=== PATIENT | male | born 1970 | race African-American/Black ===

== ENCOUNTER 2021-03-24 05:55 | Emergency (ER) | payer OTHER, SELFPAY ==
[2021-03-24] VITALS (17 sets, daily range): BP systolic 110–171; BP diastolic 55–102; PULSE 93–109; RESP 15–30; TEMP 35.5; O2SAT 91–100; BMI 35.2
--- NOTE | 2021-03-24 05:59 | DI.RAD.S_ITS ---
PROCEDURE: XR CHEST 1V INDICATIONS: Shortness of breath TECHNIQUE: One view of the chest was acquired. COMPARISON: None. FINDINGS: Surgical changes and devices: None. Lungs and pleura: Lungs are clear. No pleural effusions or pneumothorax. Mediastinum: Mediastinal contours appear normal. Heart size is normal. Bones and chest wall: No suspicious bony lesions. Overlying soft tissues appear unremarkable. IMPRESSION: No acute cardiopulmonary abnormality. Dictated by: Clyde Schofield M.D. on 03/24/2021 at 8:29 Approved by: Clyde Schofield M.D. on 03/24/2021 at 8:29
--- NOTE | 2021-03-24 06:00 | ED_ITS ---
HPI - General Adult <Cornelio Hastings DO - Last Filed: 03/25/21 18:19> General Chief complaint: Chest Pain Stated complaint: sob x6 hours Time Seen by Provider: 03/24/21 05:57 Source: patient Mode of arrival: Ambulatory Limitations: no limitations History of Present Illness HPI narrative: Patient is a 50-year-old male. Initially arrived with a complaint of shortness of breath for the past 6 hours. He states that it did wake him from sleep. Upon further questioning he states he is also having some chest discomfort. Has right-sided shoulder discomfort. Has abdominal discomfort and also pain in his right calf muscle. The discomfort in his abdomen and shoulder and leg started after the shortness of breath. Had some nausea but no vomiting. No change in bowel habits. No urinary symptoms. Related Data Allergies Allergy/AdvReac Type Severity Reaction Status Date / Time No Known Drug Allergies Allergy Verified 03/24/21 07:13 Review of Systems <Cornelio Hastings DO - Last Filed: 03/25/21 18:19> Constitutional Constitutional: Denies fever(s) and Denies headache(s) Eyes Eyes: Reports system reviewed and no additional complaints, except as documented ENT Ears, Nose, Mouth, and Throat: Reports system reviewed and no additional complaints, except as documented and Denies headache(s) Cardiovascular Cardiovascular: Reports as per HPI and Reports system reviewed and no additional complaints, except as documented Respiratory Respiratory: Reports as per HPI and Reports system reviewed and no additional complaints, except as documented Gastrointestinal Gastrointestinal: Reports as per HPI, Reports system reviewed and no additional complaints, except as documented and Reports abdominal pain Genitourinary Genitourinary: Reports system reviewed and no additional complaints, except as documented Musculoskeletal Musculoskeletal: Reports system reviewed and no additional complaints, except as documented and Reports as per HPI Integumentary/Breasts Skin/Breast: Reports system reviewed and no additional complaints, except as documented Neurologic Neurologic: Reports system reviewed and no additional complaints, except as documented and Denies headache(s) Hematologic/Lymphatic On Anticoagulants: No Allergic/Immunologic Allergic/Immunologic: Reports system reviewed and no additional complaints, except as documented Patient History <Cornelio Hastings DO - Last Filed: 03/25/21 18:19> Medical History Patient denies medical problems Social History Smoking Status: Never smoker Exam <Cornelio Hastings DO - Last Filed: 03/25/21 18:19> Initial Vital Signs Initial Vital Signs: Vital Signs Temperature 96 F L 03/24/21 06:00 Pulse Rate 109 H 03/24/21 06:00 Respiratory Rate 21 03/24/21 06:00 Blood Pressure 114/86 03/24/21 06:00 Pulse Oximetry 99 03/24/21 06:00 Const General: cooperative and well groomed Limitations: mental status not altered [facility] Head: normal to inspection and normocephalic Eyes General: appearance normal, both eyes and all related structures Chest Chest: normal inspection of the chest and No tenderness Resp Effort & Inspection: tachypneic Auscultation: clear to auscultation bilaterally Cardio Rate: tachycardic Rhythm: regular rhythm GI Inspection: non-distended Palpation: soft and tender (Right lower quadrant) Back/Spine/Pelvis Back: normal to inspection Skin General: no rashes or lesions noted Neuro General: patient alert, patient awake, patient oriented x3 and moves all extremities Extrem General: capillary refill normal Other: Reproducible discomfort on the anterior portion of the right shoulder. Also discomfort in his right calf muscle Psych Appearance: grossly normal and well kempt <Althea Daniel DO - Last Filed: 03/24/21 18:12> Initial Vital Signs Initial Vital Signs: Vital Signs Temperature 96 F L 03/24/21 06:00 Pulse Rate 109 H 03/24/21 06:00 Respiratory Rate 03/24/21 06:00 Blood Pressure 114/86 03/24/21 06:00 Pulse Oximetry 99 03/24/21 06:00 Course <Cornelio Hastings DO - Last Filed: 03/25/21 18:19> Orders Ordered: Discontinued Medications Aspirin (Aspirin 81 Mg Chew Tab) 324 mg PO NOW ONE Stop: 03/24/21 06:32 Last Admin: 03/24/21 06:40 Dose: 324 mg Documented by: MIKALA Heparin Sodium (Porcine) (Heparin 5,000 Unit/Ml Vial) 7,500 unit IV NOW ONE Stop: 03/24/21 07:06 Last Admin: 03/24/21 07:19 Dose: 7,500 unit Documented by: AICHA Sodium Chloride (Normal Saline 0.9%) 1,000 mls @ 500 mls/hr IV BOLUS ONE Stop: 03/24/21 08:30 Last Infusion: 03/24/21 10:19 Dose: 0 mls/hr Documented by: Admin: 03/24/21 06:40 Dose: 500 mls/hr Documented by: MIKALA Heparin Sodium/Dextrose (Heparin Drip) 25,000 unit in 500 mls @ 24 mls/hr IV CONT MARIAN; Protocol Last Titration: 03/24/21 13:01 Dose: 0 units/hr, 0 mls/hr Documented by: Admin: 03/24/21 07:14 Dose: 1,200 units/hr, 24 mls/hr Documented by: AICHA Vital Signs Vital signs: Vital Signs - 8 hr 03/24/21 10:30 03/24/21 11:00 03/24/21 11:30 Pulse Rate 97 H 95 H 94 H Respiratory Rate 28 H 25 H 30 H Blood Pressure 141/91 H 142/97 H 166/95 H Pulse Oximetry 96 98 100 03/24/21 12:00 03/24/21 12:30 Pulse Rate 97 H 97 H Respiratory Rate 28 H 29 H Blood Pressure 153/99 H 171/102 H Pulse Oximetry 96 98 <Althea Daniel, - Last Filed: 03/24/21 18:12> Orders Ordered: Discontinued Medications Aspirin (Aspirin 81 Mg Chew Tab) 324 mg PO NOW ONE Stop: 03/24/21 06:32 Last Admin: 03/24/21 06:40 Dose: 324 mg Documented by: MIKALA Heparin Sodium (Porcine) (Heparin 5,000 Unit/Ml Vial) 7,500 unit IV NOW ONE Stop: 03/24/21 07:06 Last Admin: 03/24/21 07:19 Dose: 7,500 unit Documented by: AICHA Sodium Chloride (Normal Saline 0.9%) 1,000 mls @ 500 mls/hr IV BOLUS ONE Stop: 03/24/21 08:30 Last Infusion: 03/24/21 10:19 Dose: 0 mls/hr Documented by: Admin: 03/24/21 06:40 Dose: 500 mls/hr Documented by: MIKALA Heparin Sodium/Dextrose (Heparin Drip) 25,000 unit in 500 mls @ 24 mls/hr IV CONT MARIAN; Protocol Last Titration: 03/24/21 13:01 Dose: 0 units/hr, 0 mls/hr Documented by: Admin: 03/24/21 07:14 Dose: 1,200 units/hr, 24 mls/hr Documented by: AICHA Consultations Consultation #1: Dr. Fletcher at [facility]. Recommends continuing with current plan. If decompensates to callback. Time: 10:50 Consultation #2: Dr. Mckinnon, [facility] hospitalist at [facility] kindly accepts for transfer to [facility]. Time: 11:38 Vital Signs Vital signs: Vital Signs - 8 hr 03/24/21 10:30 03/24/21 11:00 03/24/21 11:30 Pulse Rate 97 H 95 H 94 H Respiratory Rate 28 H 25 H 30 H Blood Pressure 141/91 H 142/97 H 166/95 H Pulse Oximetry 96 98 100 03/24/21 12:00 03/24/21 12:30 Pulse Rate 97 H 97 H Respiratory Rate 28 H 29 H Blood Pressure 153/99 H 171/102 H Pulse Oximetry 96 98 Medical Decision Making <Cronelio Hastings, - Last Filed: 03/25/21 18:19> Lab Data Result diagrams: 03/24/21 06:10 03/24/21 06:10 Labs: Lab Results 03/24/21 03/24/21 03/24/21 Range/Units 06:00 06:10 06:10 WBC 14.2 H (4.5-11.0) X10^3/uL RBC 5.61 (4.5-5.9) X10^6/uL Hgb 16.3 (13.5-17.5) g/dL Hct 49.6 (41-53) % MCV 88.3 (80-100) fL MCH 29.1 (26-34) PG MCHC 32.9 (30-36) % RDW 13.7 (11.6-14.8) % Plt Count 273 (150-400) X10^3/uL Neut % (Auto) 87.2 H (50-75) % Lymph % (Auto) 7.8 L (25-40) % [place] % (Auto) 4.4 (3-14) % Eos % (Auto) 0.1 L (2-4) % Baso % (Auto) 0.5 (0-2) % Neut # (Auto) 51283 H (2700-7513) /uL Lymph # (Auto) 1100 (5666-2008) /uL [place] # (Auto) 600 (0-900) /uL Eos # (Auto) 0 (0-450) /uL Baso # (Auto) 100 (0-100) /uL Platelet Estimate Adequate on smear RBC Morphology Normal morphology PT (10.1-12.7) SECONDS INR (0.9-1.3) APTT (26.4-36.2) SECONDS Sodium 141 (137-145) mmol/L Potassium 4.4 (3.4-5.1) mmol/L Chloride 105 (98-107) mmol/L Carbon Dioxide 24 (22-32) mmol/L BUN 22 H (9-20) mg/dL Creatinine 1.60 H (0.66-1.25) mg/dL Estimated GFR 46.2 L (>60) mL/min BUN/Creatinine Ratio 13.8 (6-22) Glucose 178 H (70-100) mg/dL Calcium 9.4 (8.4-10.2) mg/dL Total Bilirubin 1.1 (0.2-1.3) mg/dL AST 40 (17-59) IU/L ALT 25 (<50) IU/L Alkaline Phosphatase 81 (38-126) U/L Total Creatine Kinase (55-170) U/L CK-MB (CK-2) (<2.37) ng/mL CK-MB (CK-2) Rel Index (1.5-5.0) % Troponin I (0.01-0.034) ng/mL NT-Pro-B Natriuret Pep (<125) pg/mL Total Protein 8.6 H (6.3-8.2) g/dL Albumin 4.7 (3.5-5.0) g/dL Globulin 3.9 (1.7-4.1) g/dL Albumin/Globulin Ratio 1.2 (1.0-2.8) Lipase (23-300) U/L Procalcitonin (<0.5) ng/mL SARS-CoV-2 (PCR) Negative (Negative) 03/24/21 03/24/21 03/24/21 Range/Units 06:10 06:10 06:10 WBC (4.5-11.0) X10^3/uL RBC (4.5-5.9) X10^6/uL Hgb (13.5-17.5) g/dL Hct (41-53) % MCV (80-100) fL MCH (26-34) PG MCHC (30-36) % RDW (11.6-14.8) % Plt Count (150-400) X10^3/uL Neut % (Auto) (50-75) % Lymph % (Auto) (25-40) % [place] % (Auto) (3-14) % Eos % (Auto) (2-4) % Baso % (Auto) (0-2) % Neut # (Auto) (0109-7474) /uL Lymph # (Auto) (1220-3592) /uL [place] # (Auto) (0-900) /uL Eos # (Auto) (0-450) /uL Baso # (Auto) (0-100) /uL Platelet Estimate RBC Morphology PT 13.0 H (10.1-12.7) SECONDS INR 1.2 (0.9-1.3) APTT 32 (26.4-36.2) SECONDS Sodium (137-145) mmol/L Potassium (3.4-5.1) mmol/L Chloride (98-107) mmol/L Carbon Dioxide (22-32) mmol/L BUN (9-20) mg/dL Creatinine (0.66-1.25) mg/dL Estimated GFR (>60) mL/min BUN/Creatinine Ratio (6-22) Glucose (70-100) mg/dL Calcium (8.4-10.2) mg/dL Total Bilirubin (0.2-1.3) mg/dL AST (17-59) IU/L ALT (<50) IU/L Alkaline Phosphatase (38-126) U/L Total Creatine Kinase 339 H (55-170) U/L CK-MB (CK-2) 3.20 H (<2.37) ng/mL CK-MB (CK-2) Rel Index 0.9 L (1.5-5.0) % Troponin I 0.542 H* (0.01-0.034) ng/mL NT-Pro-B Natriuret Pep 3230 H (<125) pg/mL Total Protein (6.3-8.2) g/dL Albumin (3.5-5.0) g/dL Globulin (1.7-4.1) g/dL Albumin/Globulin Ratio (1.0-2.8) Lipase 108 (23-300) U/L Procalcitonin (<0.5) ng/mL SARS-CoV-2 (PCR) (Negative) 03/24/21 03/24/21 Range/Units 06:24 07:50 WBC (4.5-11.0) X10^3/uL RBC (4.5-5.9) X10^6/uL Hgb (13.5-17.5) g/dL Hct (41-53) % MCV (80-100) fL MCH (26-34) PG MCHC (30-36) % RDW (11.6-14.8) % Plt Count (150-400) X10^3/uL Neut % (Auto) (50-75) % Lymph % (Auto) (25-40) % [place] % (Auto) (3-14) % Eos % (Auto) (2-4) % Baso % (Auto) (0-2) % Neut # (Auto) (0839-6312) /uL Lymph # (Auto) (9922-1644) /uL [place] # (Auto) (0-900) /uL Eos # (Auto) (0-450) /uL Baso # (Auto) (0-100) /uL Platelet Estimate RBC Morphology PT (10.1-12.7) SECONDS INR (0.9-1.3) APTT (26.4-36.2) SECONDS Sodium (137-145) mmol/L Potassium (3.4-5.1) mmol/L Chloride (98-107) mmol/L Carbon Dioxide (22-32) mmol/L BUN (9-20) mg/dL Creatinine (0.66-1.25) mg/dL Estimated GFR (>60) mL/min BUN/Creatinine Ratio (6-22) Glucose (70-100) mg/dL Calcium (8.4-10.2) mg/dL Total Bilirubin (0.2-1.3) mg/dL AST (17-59) IU/L ALT (<50) IU/L Alkaline Phosphatase (38-126) U/L Total Creatine Kinase (55-170) U/L CK-MB (CK-2) (<2.37) ng/mL CK-MB (CK-2) Rel Index (1.5-5.0) % Troponin I (0.01-0.034) ng/mL NT-Pro-B Natriuret Pep (<125) pg/mL Total Protein (6.3-8.2) g/dL Albumin (3.5-5.0) g/dL Globulin (1.7-4.1) g/dL Albumin/Globulin Ratio (1.0-2.8) Lipase (23-300) U/L Procalcitonin 0.14 (<0.5) ng/mL SARS-CoV-2 (PCR) Negative (Negative) Imaging Data Chest x-ray: Radiologist's Impression: No acute findings CT scan - abdomen/pelvis: Radiologist's Impression: Triangular region of diminished attenuation at the lower pole the right kidney is suggestive of an infarct CT scan - chest: Radiologist's Impression: Large volume acute bilateral pulmonary emboli Cardiomegaly with indications of right heart strain Right ventricle to left ventricle ratio was greater than 2 suggestive of right heart strain ECG Data Attestation: I personally reviewed and interpreted this ECG as follows: Prior ECG tracings: not available for review Interpretation: Sinus tachycardia and Ventricular rate of 106 Normal axis Right bundle branch block T-wave inversions in 2 3 AVF V1 through V6 MDM Narrative Medical decision making narrative: Patient arrived tachycardic. It is a sinus tachycardia. Was tachypneic. Initially shortness of breath was his presentation however upon further questioning has multiple symptoms to include chest discomfort and right shoulder discomfort and abdominal discomfort and right calf discomfort. His right shoulder discomfort is reproducible with palpation. His chest discomfort is not. He is not hypoxic. His COVID is negative. Chest x-ray is unremarkable. Does have inverted T-waves on his EKG. There is no prior EKG for comparison. Also has right lower quadrant abdominal pain. Given his presentation is concern for multiple etiologies to include pulmonary embolism, cardiovascular etiology, pulmonary etiology, intra-abdominal surgical etiology, DVT and others. Patient was given aspirin. Will obtain CT scan/PE protocol of his chest and also CT scan of his abdomen. Care turned over to Dr. Daniel to follow-up. <Althea Daniel, DO - Last Filed: 03/24/21 18:12> Lab Data Labs: Lab Results 03/24/21 03/24/21 03/24/21 Range/Units 06:00 06:10 06:10 WBC 14.2 H (4.5-11.0) X10^3/uL RBC 5.61 (4.5-5.9) X10^6/uL Hgb 16.3 (13.5-17.5) g/dL Hct 49.6 (41-53) % MCV 88.3 (80-100) fL MCH 29.1 (26-34) PG MCHC 32.9 (30-36) % RDW 13.7 (11.6-14.8) % Plt Count 273 (150-400) X10^3/uL Neut % (Auto) 87.2 H (50-75) % Lymph % (Auto) 7.8 L (25-40) % [place] % (Auto) 4.4 (3-14) % Eos % (Auto) 0.1 L (2-4) % Baso % (Auto) 0.5 (0-2) % Neut # (Auto) 33319 H (2834-4586) /uL Lymph # (Auto) 1100 (2032-4816) /uL [place] # (Auto) 600 (0-900) /uL Eos # (Auto) 0 (0-450) /uL Baso # (Auto) 100 (0-100) /uL Platelet Estimate Adequate on smear RBC Morphology Normal morphology PT (10.1-12.7) SECONDS INR (0.9-1.3) APTT (26.4-36.2) SECONDS Sodium 141 (137-145) mmol/L Potassium 4.4 (3.4-5.1) mmol/L Chloride 105 (98-107) mmol/L Carbon Dioxide 24 (22-32) mmol/L BUN 22 H (9-20) mg/dL Creatinine 1.60 H (0.66-1.25) mg/dL Estimated GFR 46.2 L (>60) mL/min BUN/Creatinine Ratio 13.8 (6-22) Glucose 178 H (70-100) mg/dL Calcium 9.4 (8.4-10.2) mg/dL Total Bilirubin 1.1 (0.2-1.3) mg/dL AST 40 (17-59) IU/L ALT 25 (<50) IU/L Alkaline Phosphatase 81 (38-126) U/L Total Creatine Kinase (55-170) U/L CK-MB (CK-2) (<2.37) ng/mL CK-MB (CK-2) Rel Index (1.5-5.0) % Troponin I (0.01-0.034) ng/mL NT-Pro-B Natriuret Pep (<125) pg/mL Total Protein 8.6 H (6.3-8.2) g/dL Albumin 4.7 (3.5-5.0) g/dL Globulin 3.9 (1.7-4.1) g/dL Albumin/Globulin Ratio 1.2 (1.0-2.8) Lipase (23-300) U/L Procalcitonin (<0.5) ng/mL SARS-CoV-2 (PCR) Negative (Negative) 03/24/21 03/24/21 03/24/21 Range/Units 06:10 06:10 06:10 WBC (4.5-11.0) X10^3/uL RBC (4.5-5.9) X10^6/uL Hgb (13.5-17.5) g/dL Hct (41-53) % MCV (80-100) fL MCH (26-34) PG MCHC (30-36) % RDW (11.6-14.8) % Plt Count (150-400) X10^3/uL Neut % (Auto) (50-75) % Lymph % (Auto) (25-40) % [place] % (Auto) (3-14) % Eos % (Auto) (2-4) % Baso % (Auto) (0-2) % Neut # (Auto) (6790-3684) /uL Lymph # (Auto) (0215-3063) /uL [place] # (Auto) (0-900) /uL Eos # (Auto) (0-450) /uL Baso # (Auto) (0-100) /uL Platelet Estimate RBC Morphology PT 13.0 H (10.1-12.7) SECONDS INR 1.2 (0.9-1.3) APTT 32 (26.4-36.2) SECONDS Sodium (137-145) mmol/L Potassium (3.4-5.1) mmol/L Chloride (98-107) mmol/L Carbon Dioxide (22-32) mmol/L BUN (9-20) mg/dL Creatinine (0.66-1.25) mg/dL Estimated GFR (>60) mL/min BUN/Creatinine Ratio (6-22) Glucose (70-100) mg/dL Calcium (8.4-10.2) mg/dL Total Bilirubin (0.2-1.3) mg/dL AST (17-59) IU/L ALT (<50) IU/L Alkaline Phosphatase (38-126) U/L Total Creatine Kinase 339 H (55-170) U/L CK-MB (CK-2) 3.20 H (<2.37) ng/mL CK-MB (CK-2) Rel Index 0.9 L (1.5-5.0) % Troponin I 0.542 H* (0.01-0.034) ng/mL NT-Pro-B Natriuret Pep 3230 H (<125) pg/mL Total Protein (6.3-8.2) g/dL Albumin (3.5-5.0) g/dL Globulin (1.7-4.1) g/dL Albumin/Globulin Ratio (1.0-2.8) Lipase 108 (23-300) U/L Procalcitonin (<0.5) ng/mL SARS-CoV-2 (PCR) (Negative) 03/24/21 03/24/21 Range/Units 06:24 07:50 WBC (4.5-11.0) X10^3/uL RBC (4.5-5.9) X10^6/uL Hgb (13.5-17.5) g/dL Hct (41-53) % MCV (80-100) fL MCH (26-34) PG MCHC (30-36) % RDW (11.6-14.8) % Plt Count (150-400) X10^3/uL Neut % (Auto) (50-75) % Lymph % (Auto) (25-40) % [place] % (Auto) (3-14) % Eos % (Auto) (2-4) % Baso % (Auto) (0-2) % Neut # (Auto) (0187-8611) /uL Lymph # (Auto) (1556-2790) /uL [place] # (Auto) (0-900) /uL Eos # (Auto) (0-450) /uL Baso # (Auto) (0-100) /uL Platelet Estimate RBC Morphology PT (10.1-12.7) SECONDS INR (0.9-1.3) APTT (26.4-36.2) SECONDS Sodium (137-145) mmol/L Potassium (3.4-5.1) mmol/L Chloride (98-107) mmol/L Carbon Dioxide (22-32) mmol/L BUN (9-20) mg/dL Creatinine (0.66-1.25) mg/dL Estimated GFR (>60) mL/min BUN/Creatinine Ratio (6-22) Glucose (70-100) mg/dL Calcium (8.4-10.2) mg/dL Total Bilirubin (0.2-1.3) mg/dL AST (17-59) IU/L ALT (<50) IU/L Alkaline Phosphatase (38-126) U/L Total Creatine Kinase (55-170) U/L CK-MB (CK-2) (<2.37) ng/mL CK-MB (CK-2) Rel Index (1.5-5.0) % Troponin I (0.01-0.034) ng/mL NT-Pro-B Natriuret Pep (<125) pg/mL Total Protein (6.3-8.2) g/dL Albumin (3.5-5.0) g/dL Globulin (1.7-4.1) g/dL Albumin/Globulin Ratio (1.0-2.8) Lipase (23-300) U/L Procalcitonin 0.14 (<0.5) ng/mL SARS-CoV-2 (PCR) Negative (Negative) [facility] Narrative Medical decision making narrative: Patient arrived tachycardic. It is a sinus tachycardia. Was tachypneic. Initially shortness of breath was his presentation however upon further questioning has multiple symptoms to include chest discomfort and right shoulder discomfort and abdominal discomfort and right calf discomfort. His right shoulder discomfort is reproducible with palpation. His chest discomfort is not. He is not hypoxic. His COVID is negative. Chest x-ray is unremarkable. Does have inverted T-waves on his EKG. There is no prior EKG for comparison. Also has right lower quadrant abdominal pain. Given his presentation is concern for multiple etiologies to include pulmonary embolism, cardiovascular etiology, pulmonary etiology, intra-abdominal surgical etiology, DVT and others. Patient was given aspirin. Will obtain CT scan/PE protocol of his chest and also CT scan of his abdomen. Care turned over to Dr. Daniel to follow-up. Patient signed out to myself by Dr. aHstings and seen and independently evaluated by myself.Patient has multiple PEs bilaterally, signs of right heart strain, positive troponin, elevated BNP with right bundle-branch and T-wave inversions on his EKG. Patient also has a renal infarct noted on his CT abdomen pelvis although this is not angiography. Patient does not have known past medical issues he has not seen a physician since age 17 no allergies, no daily med ications. No known high risk factors were found. He does not smoke, drink or use alcohol. Patient woke up with his symptoms in the last 12 hours overnight. Patient has been mildly tachycardic up to 109 but typically is in the 90s. ECHO was ordered by may not be available today. PESI score is 69, class 2. Patient has not had any chest pain, shortness of breath or syncope since arrival to the department. He was short of breath overnight and when trying to ambulate to the bathroom and had to stop to take a break. And had some chest pain at that time. He has not had any syncope. Has not dropped his oxygen saturation but was given 1-2 L O2, aspirin as well as heparin drip and outside facilities were contacted as patient may be a candidate for intra-arterial thrombolysis. We have contacted and waitlisted multiple facilities throughout the region attempting to find a bed placement while patient is boarding in the department. Patient case was discussed with [facility] there are interventionalist would not intervene for the renal infarct. I also spoke with their ICU attending Dr. Chance kong who at this time with a PESI score of 2 would probably not do catheter directed thrombolysis. But if patient decompensates would be appropriate to recontact. We were able to find placement for the patient at [facility] and Dr. Mckinnon accepts for transfer. Patient just prior to transfer with EMS had reviewed his pulse status and he is DNR/DNI. This was confirmed with the patient. He states his is also aware of this and she also confirms. He is open to interventions as needed. Patient had a pulsed filled out and sent with EMS. <Althea Daniel, DO - Last Filed: 03/24/21 18:12> Critical Care Time Critical Care Time: Yes Total Critical Care Time: 55 Attestation: The high probability of a clinically significant, sudden or life threatening deterioration of the [cardiac, pulm] system(s) required my full and direct attention, intervention and personal management. The aggregate critical care time was [55] minutes. This time is in addition to time spent performing reported procedures but includes the following: [x] Data Review and interpretation [x] Patient assessment and monitoring of vital signs [x] Documentation [x] Medication orders and management Discharge Plan Departure Patient Disposition: [facility] Clinical Impression: Bilateral pulmonary embolism, Renal infarct, Acute shoulder pain, Abdominal pain, Acute deep vein thrombosis of right femoral vein
[2021-03-24 06:21] LABS: COVID19 -Nasal RAPID Negative (Negative)
--- NOTE | 2021-03-24 06:31 | DI.CT.S_ITS ---
PROCEDURE: CT ANGIO CHEST PE PROTOCOL INDICATIONS: Chest pain, shortness of breath, tachycardia TECHNIQUE: After the administration of intravenous contrast, 2 mm thick sections acquired from the pulmonary apices to the posterior costophrenic angles. 3-dimensional maximum intensity projection (MIP) coronal and sagittal reformats were then acquired through the thorax. For radiation dose reduction, the following was used: automated exposure control, adjustment of mA and/or kV according to patient size. COMPARISON: None. FINDINGS: Image quality: Excellent. Pulmonary arteries: There is a large volume of acute appearing thrombus present within the pulmonary arteries bilaterally seen extending from the distal aspects of the main pulmonary arteries into each lobe. Lungs and pleura: Lungs are clear. No pleural effusions or pneumothorax. Central and peripheral airways are patent. Mediastinum: The heart is enlarged. The RV to LV ratio is greater than 2 suggesting acute right heart strain.. No mediastinal or hilar adenopathy. Thoracic aorta is normal in caliber and enhancement. Esophagus is normal in caliber, without hiatal hernia. Bones and chest wall: No suspicious bony lesions. Ribs and thoracic spine appear intact throughout. Thyroid gland is normal. No axillary or supraclavicular adenopathy. Abdomen: Visualized upper abdominal solid organs appear normal in the early arterial phase of enhancement. IMPRESSION: 1. Large volume of acute bilateral pulmonary emboli. 2. Cardiomegaly with right heart strain. Comment: Final report is concordant with preliminary interpretation by [facility] Dictated by: Clyde Schofield M.D. on 03/24/2021 at 8:29 Approved by: Clyde Schofield M.D. on 03/24/2021 at 8:33
--- NOTE | 2021-03-24 06:31 | DI.CT.S_ITS ---
PROCEDURE: CT ABDOMEN PELVIS W CON INDICATIONS: Right-sided abdominal pain TECHNIQUE: After the administration of intravenous contrast, axial sections acquired from the lung bases to the pubic symphysis. Coronal and sagittal reformats were performed. For radiation dose reduction, the following was used: automated exposure control, adjustment of mA and/or kV according to patient size. COMPARISON: None. FINDINGS: Image quality: Excellent. Lung bases: See separately dictated CT of the chest for findings of pulmonary embolism. Heart: No significant findings. ABDOMEN: Liver: There is hepatic steatosis. Gallbladder: Unremarkable. Biliary ducts: Unremarkable. Pancreas: Unremarkable. Spleen: Unremarkable. Adrenal Glands: Unremarkable. Kidneys and Ureters: There are multiple bilateral renal cysts. A somewhat triangular region of diminished density in the lower pole of the right kidney is suggestive of an infarct. Stomach and Bowel: Stomach, small bowel loops, and colon are unremarkable. Peritoneum: No abnormal intraperitoneal fluid. No free air. Ventral Wall: No hernias. Abdominal Nodes: No retroperitoneal or mesenteric adenopathy by size criteria. Vessels: Aorta and inferior vena cava are normal in size. PELVIS: Pelvic Organs: Unremarkable. Bladder: Unremarkable. Pelvic Nodes: No enlarged lymph nodes. Miscellaneous: No hernias are seen. Bones: Unremarkable. IMPRESSION: 1. Triangular region of diminished attenuation in the lower pole of the right kidney is suggestive of an infarct. 2. Hepatic steatosis. 3. Bilateral renal cysts. 4. See separate dictation of the chest for findings of pulmonary embolism. Comment: Final report is concordant with preliminary interpretation by [facility] Dictated by: Clyde Schofield M.D. on 03/24/2021 at 8:33 Approved by: Clyde Schofield M.D. on 03/24/2021 at 8:36
[2021-03-24 06:37] LABS: Alanine Aminotransferase 25 IU/L (<50); Albumin 4.7 g/dL (3.5-5.0); Albumin Globulin Ratio 1.2 (1.0-2.8); Alkaline Phosphatase 81 U/L (38-126); Aspartate Aminotransferase 40 IU/L (17-59); BUN Creatinine Ratio 13.8 (6-22); Bilirubin Total 1.1 mg/dL (0.2-1.3); Blood Urea Nitrogen 22 mg/dL (9-20); Calcium 9.4 mg/dL (8.4-10.2); Carbon Dioxide 24 mmol/L (22-32); Chloride 105 mmol/L (98-107); Estimated Glomerular Filt Rate 46.2 mL/min (>60); Globulin 3.9 g/dL (1.7-4.1); Glucose 178 mg/dL (70-100); HEMOLYSIS 34 (0-50); Potassium 4.4 mmol/L (3.4-5.1); Sodium 141 mmol/L (137-145); Total Protein 8.6 g/dL (6.3-8.2)
[2021-03-24] MEDS: ASPIRIN 81 MG CHEW TAB 324 MG PO (06:40)
[2021-03-24] MEDS: SODIUM CHLORIDE 0.9% 1,000 ML 500 ML IV (06:40)
[2021-03-24 06:50] LABS: NT-proBNP (BNP-Adult 18+) 3230 pg/mL (<125)
[2021-03-24 06:56] LABS: Basophils Absolute Auto 100 /uL (0-100); Basophils Percent Auto 0.5 % (0-2); Eosinophils Absolute Auto 0 /uL (0-450); Eosinophils Percent Auto 0.1 % (2-4); Hematocrit 49.6 % (41-53); Hemoglobin 16.3 g/dL (13.5-17.5); Lymphocytes Absolute Auto 1100 /uL (1100-4500); Lymphocytes Percent Auto 7.8 % (25-40); Mean Corpuscular HGB Conc 32.9 % (30-36); Mean Corpuscular Hemoglobin 29.1 PG (26-34); Mean Corpuscular Volume 88.3 fL (80-100); Monocytes Absolute Auto 600 /uL (0-900); Monocytes Percent Auto 4.4 % (3-14); Neutrophils Absolute Auto 12400 /uL (1500-7000); Neutrophils Percent Auto 87.2 % (50-75); Red Blood Cell Count 5.61 X10^6/uL (4.5-5.9); Red Cell Distribution Width 13.7 % (11.6-14.8); White Blood Cell Count 14.2 X10^3/uL (4.5-11.0)
[2021-03-24 06:58] LABS: Add Manual Diff / Slide Review SLIDE REVIEW
[2021-03-24 07:11] LABS: Platelet Estimate Adequate on smear; RBC Morphology Normal Morphology
[2021-03-24 07:13] LABS: Platelet Count 273 X10^3/uL (150-400)
[2021-03-24] MEDS: HEPARIN DRIP 25,000 UNIT/500 ML IV.SOLN 24 UNIT IV (07:14)
[2021-03-24] MEDS: HEPARIN 5,000 UNIT/ML VIAL 7500 UNIT IV (07:19)
--- NOTE | 2021-03-24 07:20 | DI.ECHO.S_ITS ---
Version: 1 Study ID: [id number] [place] [id number] Name: ELLIE RUSS Study Date: 03/24/2021, 10: 06 AM : 1970 BP: 125 / 75 mmHg Gender: Male Height: 72 in Age: 50 Years Weight: 260 lb BSA: 2.38 mA? Ordering: GAURAV ROMAN Referring: GAURAV ROMAN Clinician: Galina Gómez Reason For Study: BILATERAL PULMONARY EMBOLISM History: Summary Statements Normal sinus rhythm. Normal LV size, wall thickness, wall motion and LV systolic function. EF is 60-65%. Severe RA and RV enlargement with normal RV function. D shaped LV in systole and diastole consistent with RV pressure overload. Estimated PA systolic pressure is 54 mm hG assuming RA pressure of 15 mm Hg. There are multiple large independently mobile echogenic lesions attached to the tricuspid valve cordae measuring 2 gm in length and 0.6 gm in thickness.. There is moderate eccentric associated tricuspid regurgitation. Differential diagnosis includes thrombus (less likely) versus vegetation (more likely). No prior study available for comparison. Procedure: A two-dimensional transthoracic echocardiogram with color flow and Doppler was performed. The study quality was technically good. There is no prior echocardiogram noted for this patient. The patient was in sinus rhythm with heart rates between 91-95 bpm during the exam. Left Ventricle: Left ventricular ejection fraction is estimated to be 45 +/- 5%. The left ventricle is normal in size and wall thickness. The interventricular septum is flattened, consistent with a right ventricular pressure/volume condition. Right Ventricle: The right ventricle is severely dilated. Atria: There is no Doppler evidence for an interatrial shunt. The left atrium is small. The right atrium is severely dilated. Mitral Valve: There is mild mitral regurgitation. The mitral valve is normal in structure and function. Aortic Valve: No aortic regurgitation is present. There is no aortic valve stenosis. The aortic valve is trileaflet. The aortic valve opens well. Tricuspid Valve: There is moderate to severe tricuspid regurgitation. The right ventricular systolic pressure is estimated to be at least 54 mmHg based on an estimated right atrial pressure of 15 mm Hg. Pulmonic Valve: There is no pulmonic valvular regurgitation. The pulmonic valve is not well seen, but is grossly normal. Great Vessels: The ascending aorta is mildly enlarged. The aortic root is normal size. The IVC is dilated (diameter is greater than 2.1 cm) and it collapses less than 50% with a sniff. This suggests a high right atrial pressure of 15 mm Hg. The pulomary artery appears dilated. Pericardium/ Pleura: There is no pericardial effusion. There is no pleural effusion. 2D and M-Mode Measurements and Calculations LVIDd: 4.3 cm LVOT diam: 2.12 cm LVIDs: 3.1 cm Ao root diam: 3.2 cm IVSd: 0.96 cm asc Aorta Diam: 3.8 cm LVPWd: 1.04 cm Ao Arch Diam (Prox Trans): 3.1 cm LV watkins. diameter/BSA (cm/m^2): 1.80 LV sys. diameter/BSA (cm/m^2): 1.28 RVD1 (basal): 6.6 cm IVC diam: 2.33 cm RVD2 (mid): 6.6 cm RVDd major: 8.6 cm LA A4 area: 10.9 shearer printed circuit boards? RA area: 42.4 shearer printed circuit boards? LA length (vol): 5.8 cm RA long axis: 6.9 cm RA vol: 220.7 ml RA : 92.7 ml/mA? Doppler Measurements and Calculations Ao V2 max: 86.2 cm/sec LVOT Max Ga: 60.1 cm/sec Ao V2 mean: 66.2 cm/sec LV V1 max P.44 mmHg Ao V2 VTI: 10.3 cm LV V1 VTI: 8.8 cm Ao max P.0 mmHg Ao mean P.91 mmHg MELANIE(I,D): 3.0 shearer printed circuit boards? MELANIE(V,D): 2.46 shearer printed circuit boards? MELANIE indexed to BSA (cm^2/m^2): 1.27 sev ratio: 0.85 MV E max ga: 34.0 cm/sec MV dec time: 0.16 sec MV A max ga: 34.7 cm/sec MV E/A: 0.98 Med Peak E' Ga: 6.0 cm/sec Lat Peak E' Ga: 5.3 cm/sec E/e' average: 6.1 TR max ga: 312.0 cm/sec TR max P.9 mmHg Electronically signed by: Mere Sanchez M.D. 03/24/2021, 11: 01 AM
[2021-03-24 07:24] LABS: Troponin I 0.542 ng/mL (0.01-0.034)
[2021-03-24 07:25] LABS: CKMB % Relative Index 0.9 % (1.5-5.0); Creatine Kinase 339 U/L (55-170); Lipase 108 U/L (23-300)
[2021-03-24 07:33] LABS: INR 1.2 (0.9-1.3)
[2021-03-24 07:36] LABS: PTT Partial Thromboplastin Tim 32 SECONDS (26.4-36.2)
--- NOTE | 2021-03-24 08:41 | PC.NURSE ---
Vital signs taken before 0700 03/24/21 not taken by this RN.
--- NOTE | 2021-03-24 08:47 | DI.US.S_ITS ---
PROCEDURE: US PERIPH VENOUS LOW EXTREM BI INDICATIONS: bilateral pulmonary emboli TECHNIQUE: Real-time imaging, as well as color and pulse Doppler interrogation, were performed of the deep veins of both legs from the inguinal ligament to the popliteal fossa. COMPARISON: None. FINDINGS: Right: The common femoral vein and proximal portion of the femoral vein are normally compressible, and free of intraluminal thrombus. Color and pulse Doppler demonstrate normal phasic intravascular flow. There is a filling defect within the mid to distal right femoral vein extending into the popliteal vein with lack of color flow and incompressibility, consistent with thrombus. Left: The common femoral, femoral and popliteal veins are normally compressible, and free of intraluminal thrombus. Color and pulse Doppler demonstrate normal phasic intravascular flow. There is normal augmentation response to distal compression maneuver. IMPRESSION: 1. Occlusive thrombus within the mid to distal right femoral vein and right popliteal vein. 2. No sonographic evidence of deep venous thrombosis in the left lower extremity. Concordant preliminary findings were conveyed to Dr. Daniel by the pan reclaim processor on 03/24/2021 at 9:45 AM. Dictated by: Efren Lee M.D. on 03/24/2021 at 12:33 Approved by: Efren Lee M.D. on 03/24/2021 at 12:36
[2021-03-24 09:19] LABS: COVID19 - ADMIT (NP swab/PCR) Negative (Negative)
--- NOTE | 2021-03-24 12:38 | PC.NURSE ---
Gave report to Ambulance RN: Hema.
--- NOTE | 2021-03-24 13:03 | PC.NURSE ---
Heparin drip continued upon transfer under care of Ambulance RNHema. Discontinued in MAY for purposes of [facility] documentation only.
[2021-03-24 17:45] LABS: Procalcitonin 0.14 ng/mL (<0.5)
== END 2021-03-24 13:00 | disposition short-term general hospital (02) ==
PROVIDERS: Emergency Medicine; Emergency Provider Emergency Medicine
DX: I26.99 Other pulmonary embolism without acute cor pulmonale (principal); N28.0 Ischemia and infarction of kidney; I82.411 Acute embolism and thrombosis of right femoral vein; R00.0 Tachycardia, unspecified; Z20.822 Contact with and (suspected) exposure to COVID-19
CPT/HCPCS: 36415; 71045; 71275; 74177; 80053; 82550; 82553; 83690; 83880; 84145; 84484; 85025; 85610; 85730; 87635; 93005; 93306; 93970; 96361; 96365; 96366; 96375; 99285; 99291; C9803; J1644; Q9967

== ENCOUNTER 2021-04-01 11:22 | Emergency (ER) | payer OTHER, SELFPAY ==
[2021-04-01] VITALS (10 sets, daily range): BP systolic 117–130; BP diastolic 67–82; PULSE 76–90; RESP 10–26; TEMP 36.6; O2SAT 96–99; BMI 35.2
--- NOTE | 2021-04-01 12:48 | ED.EXTPRO ---
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 He was eventually transferred to [facility] treated with tPA, he is on Eliquis and follow-up was planned with his primary care physician as no etiology for his hypercoagulable state has yet been identified. He had been doing fairly well with no increased dyspnea, tachycardia, chest pain. He was not describing any fevers. Last night he noticed that his right ankle, the leg with the DVT, was more swollen and more painful to the point he was having difficulty walking. He comes in today with concerns for swelling and pain in the right ankle Related Data Previous Rx's Medication Instructions Recorded cephalexin 500 mg capsule 500 mg PO TID #30 cap 04/01/21 oxycodone-acetaminophen 5 mg-325 1 tab PO Q6H PRN #10 tab 04/01/21 mg tablet Allergies Allergy/AdvReac Type Severity Reaction Status Date / Time No Known Drug Allergies Allergy Verified 03/24/21 07:13 Review of Systems Review of Systems Narrative: Remainder of complete review of systems is otherwise unremarkable except for that included in the HPI. Patient History Medical History Patient denies medical problems Social History Smoking Status: Never smoker Smoking Status: Never smoker alcohol intake frequency: a few times a month Substance Use Type: does not use Exam Narrative Exam Narrative: General: Healthy appearing, in mild distress. Able to give a complete and coherent history. Well-nourished well-developed HEENT: Moist mucous membranes, normal sclera with reactive pupils, Neck: No JVD, supple Respiratory: Lungs are clear to auscultation, no wheezing no rales no rhonchi. Full and symmetrical air movement Cardiac: Regular rate and rhythm no murmurs no bruits Abdomen: Soft, nontender, good bowel tones, no flank pain Skin: Warm and dry, no rashes Neurologic: Grossly neurologically intact with no obvious asymmetries or abnormalities Extremities: No trauma, well perfused. Right lower extremity is more swollen than left and the right ankle has increasing warmth and erythema approximately 8 x 5 cm with no obvious skin breakdown or source for infection. Right hand is slightly swollen he notes that it has been so since discharge from the hospital and has been having some evening paresthesias while he is asleep Psych: Cooperative, appropriate insight and affect Initial Vital Signs Initial Vital Signs: Vital Signs Blood Pressure 117/67 04/01/21 11:34 Course Orders Ordered: ED Orders 04/01/21 12:57 XR ankle RT min 3V Stat 04/01/21 13:40 Blood Culture Stat Complete Blood Count AUTO DIFF Stat Comprehensive Metabolic Panel Stat Lactate (Lactic Acid) Stat Discontinued Medications Ceftriaxone Sodium 2,000 mg/ (Sodium Chloride) 100 mls @ 200 mls/hr IV NOW ONE Stop: 04/01/21 12:55 Last Admin: 04/01/21 13:59 Dose: 200 mls/hr Documented by: GENE Oxycodone/Acetaminophen (Oxycodone/Acetaminophen 5/325 Tablet) 1 tab PO NOW ONE Stop: 04/01/21 12:55 Last Admin: 04/01/21 13:12 Dose: 1 tab Documented by: GENE Vital Signs Vital signs: Vital Signs - 8 hr 04/01/21 11:34 04/01/21 11:35 04/01/21 11:37 Temperature 97.8 F Pulse Rate 90 88 Respiratory Rate 18 Blood Pressure 117/67 117/67 Pulse Oximetry 99 99 04/01/21 12:00 04/01/21 12:30 04/01/21 13:00 Temperature Pulse Rate 81 79 76 Respiratory Rate 10 L 17 18 Blood Pressure 123/77 126/81 Pulse Oximetry 97 97 99 MDM - Extremity (Nontraumatic) Lab Data Result diagrams: 04/01/21 13:40 04/01/21 13:40 Labs: Lab Results 04/01/21 04/01/21 04/01/21 Range/Units 13:40 13:40 13:40 WBC 11.5 H (4.5-11.0) X10^3/uL RBC 5.13 (4.5-5.9) X10^6/uL Hgb 14.9 (13.5-17.5) g/dL Hct 45.4 (41-53) % MCV 88.6 (80-100) fL MCH 29.1 (26-34) PG MCHC 32.8 (30-36) % RDW 13.4 (11.6-14.8) % Plt Count 372 (150-400) X10^3/uL Neut % (Auto) 76.9 H (50-75) % Lymph % (Auto) 11.5 L (25-40) % Mineral % (Auto) 10.4 (3-14) % Eos % (Auto) 0.3 L (2-4) % Baso % (Auto) 0.9 (0-2) % Neut # (Auto) 8800 H (5686-7430) /uL Lymph # (Auto) 1300 (6615-9230) /uL Mineral # (Auto) 1200 H (0-900) /uL Eos # (Auto) 0 (0-450) /uL Baso # (Auto) 100 (0-100) /uL Sodium 138 (137-145) mmol/L Potassium 4.4 (3.4-5.1) mmol/L Chloride 103 (98-107) mmol/L Carbon Dioxide 27 (22-32) mmol/L BUN 19 (9-20) mg/dL Creatinine 1.43 H (0.66-1.25) mg/dL Estimated GFR 52.6 L (>60) mL/min BUN/Creatinine Ratio 13.3 (6-22) Glucose 89 (70-100) mg/dL Lactate 1.1 (0.7-2.1) mmol/L Calcium 9.5 (8.4-10.2) mg/dL Total Bilirubin 1.5 H (0.2-1.3) mg/dL AST 31 (17-59) IU/L ALT 35 (<50) IU/L Alkaline Phosphatase 86 (38-126) U/L Total Protein 8.5 H (6.3-8.2) g/dL Albumin 4.4 (3.5-5.0) g/dL Globulin 4.1 (1.7-4.1) g/dL Albumin/Globulin Ratio 1.1 (1.0-2.8) Imaging Data XR ankle: Radiologist's Impression: FINDINGS:? ? Bones:? No fractures or dislocations.? Ankle mortise is normally aligned.? No suspicious bony lesions.? ? Soft tissues:? No tibiotalar joint effusion.? Small calcification is noted near the Achilles tendon insertion. ? ? IMPRESSION: No visualized acute fracture or dislocation. However, if clinical concern and/or pain persist, short interval imaging followup in 7-10 days is recommended, as occult injury cannot be definitively excluded. ? Dictated by: Lou Marlow M.D. on 04/01/2021 at 13:30 ? ? MDM Narrative Medical decision making narrative: 50-year-old gentleman diagnosed with DVT bilateral pulmonary emboli and renal infarct on 03/24 presents today with increasing right ankle pain, same side is the previously diagnosed DVT. He is currently on apixaban and does continue this. Lateral aspect of the ankle is warm to the touch with increasing erythema consistent with a superficial cellulitis. X-rays do not suggest any bony abnormality and physical exam does not suggest a septic arthritis or gout. There is no obvious skin breakdown to suggest a source for the cellulitis. Given ceftriaxone in the emergency department and will be discharged home with Keflex for an additional 10 days. If symptoms worsen he is instructed to have a very low threshold for returning for further evaluation. Discharge Plan Departure Patient Disposition: Home Clinical Impression: Cellulitis of right lower leg Instructions: DI for Cellulitis -- Adult Activity Restrictions/Additional Instructions: Thank you for coming in today The increased redness swelling and tenderness to the right side of your ankle are all consistent with cellulitis. You have been given a dose of IV ceftriaxone in the emergency department. You will need to complete 10 additional days of cephalexin, oral antibiotics. Please consider buying some compression socks to help with the swelling and heaviness feeling and that leg. Online compression socks for running or going to a sporting goods store to find running compression socks is a great option. Keep the leg elevated as much as you are able to. For medium pain using Tylenol will be appropriate. For severe pain using 1 Percocet every 6 hours can be helpful over the 1st couple of days. Any time you use narcotics, you will likely experience some constipation. Please use stool softeners and increase her fluid intake to avoid this. A more thorough workup was done and there is no evidence of overwhelming systemic infection or sepsis. An x-ray did not suggest underlying bony pathology. I do not suspect gout or intra-articular involvement. If you find new or worsening symptoms, please feel free to return to the ER Prescriptions: New oxycodone-acetaminophen 5-325 mg tablet 1 tab PO Q6H PRN (Reason: pain) Qty: 10 0RF cephalexin 500 mg capsule 500 mg PO TID Qty: 30 0RF
--- NOTE | 2021-04-01 12:57 | DI.RAD.S_ITS ---
PROCEDURE: XR ANKLE RT MIN 3V INDICATIONS: new cellulits, kown DVT this leg TECHNIQUE: 3 views of the ankle were acquired. COMPARISON: None. FINDINGS: Bones: No fractures or dislocations. Ankle mortise is normally aligned. No suspicious bony lesions. Soft tissues: No tibiotalar joint effusion. Small calcification is noted near the Achilles tendon insertion. IMPRESSION: No visualized acute fracture or dislocation. However, if clinical concern and/or pain persist, short interval imaging followup in 7-10 days is recommended, as occult injury cannot be definitively excluded. Dictated by: Lou Marlow M.D. on 04/01/2021 at 13:30 Approved by: Lou Marlow M.D. on 04/01/2021 at 13:30
[2021-04-01] MEDS: OXYCODONE/ACETAMINOPHEN 5/325 TABLET 1 TAB PO (13:12)
[2021-04-01 13:53] LABS: Add Manual Diff / Slide Review NO; Basophils Absolute Auto 100 /uL (0-100); Basophils Percent Auto 0.9 % (0-2); Eosinophils Absolute Auto 0 /uL (0-450); Eosinophils Percent Auto 0.3 % (2-4); Hematocrit 45.4 % (41-53); Hemoglobin 14.9 g/dL (13.5-17.5); Lymphocytes Absolute Auto 1300 /uL (1100-4500); Lymphocytes Percent Auto 11.5 % (25-40); Mean Corpuscular HGB Conc 32.8 % (30-36); Mean Corpuscular Hemoglobin 29.1 PG (26-34); Mean Corpuscular Volume 88.6 fL (80-100); Monocytes Absolute Auto 1200 /uL (0-900); Monocytes Percent Auto 10.4 % (3-14); Neutrophils Absolute Auto 8800 /uL (1500-7000); Neutrophils Percent Auto 76.9 % (50-75); Platelet Count 372 X10^3/uL (150-400); Red Blood Cell Count 5.13 X10^6/uL (4.5-5.9); Red Cell Distribution Width 13.4 % (11.6-14.8); White Blood Cell Count 11.5 X10^3/uL (4.5-11.0)
[2021-04-01] MEDS: cefTRIAXone 2,000 MG in SODIUM CHLORIDE 0.9% 100 ML 200 ML IV (13:59)
[2021-04-01 14:06] LABS: Lactate (Lactic Acid) 1.1 mmol/L (0.7-2.1)
[2021-04-01 14:07] LABS: Alanine Aminotransferase 35 IU/L (<50); Albumin 4.4 g/dL (3.5-5.0); Albumin Globulin Ratio 1.1 (1.0-2.8); Alkaline Phosphatase 86 U/L (38-126); Aspartate Aminotransferase 31 IU/L (17-59); BUN Creatinine Ratio 13.3 (6-22); Bilirubin Total 1.5 mg/dL (0.2-1.3); Blood Urea Nitrogen 19 mg/dL (9-20); Calcium 9.5 mg/dL (8.4-10.2); Carbon Dioxide 27 mmol/L (22-32); Chloride 103 mmol/L (98-107); Estimated Glomerular Filt Rate 52.6 mL/min (>60); Globulin 4.1 g/dL (1.7-4.1); Glucose 89 mg/dL (70-100); HEMOLYSIS < 15 (0-50); Potassium 4.4 mmol/L (3.4-5.1); Sodium 138 mmol/L (137-145); Total Protein 8.5 g/dL (6.3-8.2)
== END 2021-04-01 14:44 | disposition home or self-care (01) ==
PROVIDERS: Emergency Provider Emergency Medicine
DX: L03.115 Cellulitis of right lower limb (principal)
CPT/HCPCS: 36415; 73610; 80053; 83605; 85025; 87040; 93041; 96365; 99284; J0696

== ENCOUNTER → 2023-04-28 16:05 | Outpatient (CLI) | payer OTHER, SELFPAY ==
--- NOTE | 2023-04-28 16:08 | DI.RAD.S_ITS ---
PROCEDURE: XR KNEE RT 3V INDICATIONS: right knee pain TECHNIQUE: 3 views of the knee were acquired. COMPARISON: None. FINDINGS: Bones: No fractures or dislocations. No suspicious bony lesions. Age-appropriate bony degenerative changes are seen. Soft tissues: No joint effusion. No suspicious soft tissue calcifications. IMPRESSION: No significant plain film abnormality is seen. If it would be helpful for clinical management decision making, please consider a dedicated, scheduled knee MRI for further evaluation (assuming that there is no contraindication). Dictated by: Bassam Chamorro M.D. on 04/28/2023 at 15:34 Approved by: Bassam Chamorro M.D. on 04/28/2023 at 15:35
== END ==
LOC: RAD 16:07
PROVIDERS: Referring Provider Physician Assistant; Visit Provider Physician Assistant
DX: M25.561 Pain in right knee (principal)
CPT/HCPCS: 73562